=== PATIENT | male | born 1960 | race African-American/Black ===

== ENCOUNTER 2016-08-28 15:20 | Emergency (ER) | payer OTHER ==
[~2016-08-28] VITALS: Ht 172.7 cm; Wt 53.6 kg
[~2016-08-28 15:20] MED LIST: AMLO10TA55 PO; CIPR-278 PO; CLON0.1T PO; FOLI1TAB15 PO; LAMO100T13 PO; LEVE500T8 PO; PHEN100C9 PO; QUET25TA PO; THIA100T13 PO
[2016-08-28 17:00] LABS: EOSINOPHILS % (AUTO) 0.3 % (1.0-6.0); HEMATOCRIT 36.7 % (41-53); LYMPHOCYTES # (AUTO) 1.6 K/uL (1.0-4.8); LYMPHOCYTES % (AUTO) 54.5 % (22.0-44.0); MEAN CORPUSCULAR HEMOGLOBIN 31.8 pg (26.0-34.0); MEAN CORPUSCULAR HGB CONC 32.6 G/dL (31.0-37.0); MEAN CORPUSCULAR VOLUME 97 fL (80-100); MONOCYTES # (AUTO) 0.5 K/uL (0.1-1.0); NEUTROPHILS # (AUTO) 0.7 K/uL (1.8-7.7); NEUTROPHILS % (AUTO) 25.2 % (40.0-70.0); PLATELET COUNT (AUTO) 123 K/uL (150-450); RED BLOOD CELL COUNT(AUTO) 3.77 MIL/uL (4.50-5.90); RED CELL DISTRIBUTION WIDTH 15.6 % (11.5-14.5); WHITE BLOOD COUNT (AUTO) 2.9 K/uL (4.5-11.0)
[2016-08-28 17:13] LABS: APPEARANCE,URINE CLOUDY (CLEAR); GLUCOSE, URINE (UA) NEGATIVE (NEGATIVE); KETONES,URINE NEGATIVE (NEGATIVE); LEUKOCYTE ESTERASE ,URINE NEGATIVE (NEGATIVE); PH,URINE 5.5 (5.0-8.0); PROTEIN,URINE POS 1+ (NEGATIVE)
[2016-08-28 17:28] LABS: ADD UA MICROSCOPIC YES; AMORPHOUS SEDIMENT,UR Moderate /LPF (None Seen); OCCULT BLOOD,URINE SMALL (NEGATIVE); WBC,URINE 0-2 /HPF (0-5)
[2016-08-28 17:36] LABS: GLUCOSE,POINT OF CARE 57 MG/DL (70-110)
[2016-08-28 17:59] LABS: ANION GAP 8 mmol/L (8-16); CALCIUM, TOTAL 8.2 mg/dL (8.8-10.5); CARBON DIOXIDE 33 mmol/L (22-29); CHLORIDE 103 mmol/L (98-107); CREATININE 1.02 mg/dL (0.60-1.30); GLOMERULAR FILTR. RATE CALC > 60 mL/min (>60); POTASSIUM 3.7 mmol/L (3.5-5.1); SODIUM SERUM 144 mmol/L (136-145); UREA NITROGEN, BLOOD 12 mg/dL (7-18)
[2016-08-28 18:06] LABS: ALANINE AMINOTRANSFERASE 74 U/L (12-78); ALBUMIN 3.4 g/dL (3.4-5.0); ASPARTATE AMINOTRANSFERASE 183 U/L (15-37); BILIRUBIN,TOTAL 0.7 mg/dL (0.1-1.0); TOTAL PROTEIN, SERUM 8.5 g/dL (6.4-8.2)
[2016-08-28] MEDS ORDERED: THIAMINE HCL 100 MG/ML 2ML VIAL IVP ONE (18:45)
[2016-08-29 03:03] VITALS: BP 133/81
== END 2016-08-29 03:05 | disposition other institution (70) ==
LOC: EMS 15:21
DX: R41.82 Altered mental status, unspecified (principal); F10.10 Alcohol abuse, uncomplicated; K70.30 Alcoholic cirrhosis of liver without ascites; D61.818 Other pancytopenia; R56.9 Unspecified convulsions; E11.9 Type 2 diabetes mellitus without complications; F20.9 Schizophrenia, unspecified; I48.91 Unspecified atrial fibrillation; I10 Essential (primary) hypertension; Z88.0 Allergy status to penicillin
CPT/HCPCS: 36415; 71010; 80053; 80307; 81001; 82962; 84484; 85025; 96374; 99285; G0480; J3411

== ENCOUNTER 2019-11-02 17:37 | Emergency (ER) | payer OTHER ==
[~2019-11-02] VITALS: Ht 170.2 cm; Wt 66.4 kg
[~2019-11-02 17:37] MED LIST changes: -LAMO100T13 PO; +LAMO100T16 PO
[2019-11-02 19:43] LABS: GLUCOSE,POINT OF CARE 67 MG/DL (70-110)
[2019-11-02 20:17] LABS: HEMATOCRIT 37.6 % (41-53); LYMPHOCYTES # (AUTO) 1.8 K/uL (1.0-4.8); MONOCYTES # (AUTO) 0.6 K/uL (0.1-1.0); MONOCYTES % (AUTO) 11.3 % (2.0-9.0); NEUTROPHILS # (AUTO) 2.5 K/uL (1.8-7.7)
[2019-11-02 20:24] LABS: BASOPHILS % (AUTO) 0.9 % (0.0-2.0); HEMOGLOBIN 12.4 g/dL (13.5-17.5); LYMPHOCYTES % (AUTO) 36.6 % (22.0-44.0); MEAN CORPUSCULAR HEMOGLOBIN 30.4 pg (26.0-34.0); MEAN CORPUSCULAR VOLUME 92 fL (80-100); NEUTROPHILS % (AUTO) 50.2 % (40.0-70.0); RED BLOOD CELL COUNT(AUTO) 4.09 MIL/uL (4.50-5.90); RED CELL DISTRIBUTION WIDTH 21.9 % (11.5-14.5)
[2019-11-02 20:31] LABS: ANION GAP 15 mmol/L (8-16); CALCIUM, TOTAL 9.3 mg/dL (8.8-10.5); CARBON DIOXIDE 24 mmol/L (22-29); CHLORIDE 104 mmol/L (98-107); CREATININE 1.42 mg/dL (0.60-1.30); GLOMERULAR FILTR. RATE CALC > 60 mL/min (>60); GLUCOSE,RANDOM 69 mg/dL (70-110); POTASSIUM 4.1 mmol/L (3.5-5.1); SODIUM SERUM 143 mmol/L (136-145); UREA NITROGEN, BLOOD 10 mg/dL (7-18)
[2019-11-02 20:38] LABS: ALANINE AMINOTRANSFERASE 53 U/L (12-78); ALBUMIN 4.4 g/dL (3.4-5.0); ALKALINE PHOSPHATASE 90 U/L (46-116); ASPARTATE AMINOTRANSFERASE 112 U/L (15-37); BILIRUBIN,TOTAL 1.3 mg/dL (0.1-1.0); TOTAL PROTEIN, SERUM 9.1 g/dL (6.4-8.2)
[2019-11-02 20:44] LABS: GLUCOSE,POINT OF CARE 96 MG/DL (70-110)
[2019-11-02 20:48] LABS: PHENYTOIN (DILANTIN) < 0.5 mcg/mL (10.0-20.0)
[2019-11-02 21:05] LABS: GLUCOSE,POINT OF CARE 102 MG/DL (70-110)
[2019-11-02 21:09] LABS: PLATELET COUNT (AUTO) 107 K/uL (150-450)
[2019-11-02] MEDS ORDERED: PHENYTOIN SODIUM 1,000 MG in SODIUM CHLORIDE 0.9% 150 ML IV ONE (21:45)
[2019-11-02] MEDS ORDERED: SODIUM CHLORIDE 0.9% 1,000 ML IV ONE (21:45)
[2019-11-03 01:00] VITALS: BP 135/94
== END 2019-11-03 02:07 | disposition home or self-care (01) ==
LOC: EMS 17:40
DX: F10.129 Alcohol abuse with intoxication, unspecified (principal); R41.82 Altered mental status, unspecified; R56.9 Unspecified convulsions; I48.91 Unspecified atrial fibrillation; E11.9 Type 2 diabetes mellitus without complications; I10 Essential (primary) hypertension; F20.9 Schizophrenia, unspecified; Z59.0 Homelessness; Z88.0 Allergy status to penicillin; Z88.8 Allergy status to other drugs, medicaments and biological substances; Y90.8 Blood alcohol level of 240 mg/100 ml or more
CPT/HCPCS: 36415; 71045; 80053; 80185; 82962; 85025; 96365; 96366; 99285; G0480; J1165; J7030; J7050